=== PATIENT | female | born 1985 | race Hispanic/Latino ===

== ENCOUNTER 2024-03-30 15:31 | Emergency (ER) | payer SELFPAY ==
[2024-03-30 15:46] VITALS: BP 154/96
[2024-03-30 15:52] LABS: Glucose - Point of Care 115 mg/dl (70-99)
[2024-03-30 16:48] VITALS: BP 139/89
[2024-03-30 17:29] LABS: % Basophils 0.4 % (0-2); % Immature Granulocytes 0.3 % (0-0.5); % Lymphocytes 26.9 % (20.5-51.1); % Monocytes 6.8 % (1.7-9.3); % Neutrophils 64.6 % (42.2-75.2); Absolute Eosinophils 0.1 10^3/uL (0-0.7); Absolute Lymphocytes 2.6 10^3/uL (1.2-3.4); Absolute Monocytes 0.7 10^3/uL (0.1-0.6); Absolute Neutrophils 6.3 10^3/uL (1.4-6.5); Hematocrit 37.5 % (37.0-47.0); Hemoglobin 11.9 g/dL (12.0-16.0); Mean Corp Hgb Conc. 31.7 g/dL (33.0-37.0); Mean Corpuscular Hgb 23.1 pg (27.0-31.0); Mean Corpuscular Volume 72.8 fL (81.0-99.0); Mean Platelet Volume 11.1 fL (7.4-10.4); Nucleated Red Blood Cells % 0 %; Platelet Count 329 10^3/uL (130-400); Red Blood Cell Count 5.15 10^6/uL (4.20-5.40); Red Cell Dist. Width 15.6 % (11.5-14.5); White Blood Cell Count 9.7 10^3/uL (4.8-10.8)
--- NOTE | 2024-03-30 17:32 | ED.GENMED ---
History of Present Illness
General
Chief Complaint: Dizziness
Time Seen by Provider: 03/30/24 16:29
History of Present Illness
History of Present Illness:
39-year-old female with history of [id number] diabetes not currently on any medications presents to the emergency department for evaluation of dizziness and headache. She has had the symptoms for the past 3 days. She has not been on
metformin in quite some time. She is not able to eat for the past 2 to 3 days due to the headache. No vomiting. Does also note prior history of anemia and has had heavy periods over the past 4 months but they remain monthly and no bleeding in
between periods.
Past History
Past History
ED Past Medical History: Other (Kidney stones)
ED Past Surgical History:
Social History
Tobacco: Non-smoker
Alcohol: None
Drug: None
Personal:
Living: with family
Review of Systems
Review of Systems
Allergies reviewed?: Yes
All Other Systems: ROS reviewed and negative except as documented in HPI and ROS
Phy Exam
Physical Exam
Physical Exam:
GEN: Well appearing, NAD, WDWN
HEENT: Oral mucosa moist, no scleral icterus
Cardiac: Regular rate and rhythm, no murmurs
Lung: No respiratory distress, no tachypnea, lungs clear to auscultation bilaterally
MSK: No gross deformity or injuries
Skin: Good color, no pallor or jaundice, no rashes
Neuro: AO x3, moves all extremities freely, cranial nerves II through XII grossly intact
Psych: Calm, cooperative
Course
Orders/Labs/Results
Orders:
Orders
03/30/24 15:33
EKG [Electrocardiogram (*1)] Urgent
Reason for Study: Vertigo / Dizzy
EKG- Treatment ONCE
03/30/24 16:57
Ketorolac [Toradol] 15 mg IV NOW STA
03/30/24 16:58
Test Result ONCE
03/30/24 17:23
Complete Blood Count/With Diff Urgent
03/30/24 17:44
Comprehensive Metabolic Panel Urgent
HCG, Serum Qualitative Screen Urgent
03/30/24 18:32
Urinalysis Reflex To Culture Urgent
Date Specimen was Collected: 03/30/24
Time Specimen was Collected: 18:31
Urine Microscopic Reflex Cult Urgent
Urine Culture Urgent
CARLOS Source: U
Specimen Description:
Date Specimen was Collected: 03/30/24
Time Specimen was Collected: 18:31
03/30/24 18:37
CT Head W/o Iv Contrast Urgent
Comment:
Reason For Exam: headaches, dizziness
Abnormal Lab Results
03/30/24 03/30/24 03/30/24
15:51 17:23 17:44
Hgb 11.9 L g/dL
(12.0-16.0)
MCV 72.8 L fL
(81.0-99.0)
MCH 23.1 L pg
(27.0-31.0)
MCHC 31.7 L g/dL
(33.0-37.0)
RDW 15.6 H %
(11.5-14.5)
MPV 11.1 H fL
(7.4-10.4)
Absolute Monos (auto) 0.7 H 10^3/uL
(0.1-0.6)
Creatinine 0.5 L mg/dL
(0.6-1.0)
Glucose 111 H mg/dl
(70-99)
AST 46 H U/L
(14-36)
Urine Nitrite (Reflex)
Leukocyte Esterase Rfl
Urine Bacteria (Reflex)
POC Glucose 115 H mg/dl
(70-99)
03/30/24
18:32
Hgb
MCV
MCH
MCHC
RDW
MPV
Absolute Monos (auto)
Creatinine
Glucose
AST
Urine Nitrite (Reflex) Positive A
(Negative)
Leukocyte Esterase Rfl Trace A
(Negative)
Urine Bacteria (Reflex) Many A
(Negative)
POC Glucose
03/30/24 17:23
03/30/24 17:44
Vital Signs
Initial and Last Documented VS:
Initial Vital Signs
Temp Pulse Resp BP Pulse Ox
98.2 F 76 18 154/96 99
03/30/24 15:46 03/30/24 15:46 03/30/24 15:46 03/30/24 15:46 03/30/24 15:46
Last Documented Vital Signs
Temp Pulse Resp BP Pulse Ox
98.2 F 79 23 134/75 98
03/30/24 15:46 03/30/24 21:00 03/30/24 21:00 03/30/24 21:00 03/30/24 20:45
MDM/Problems Addressed
MDM/Problems Addressed:
39 yo female presents with h/a and dizziness. Workup unremarkable, UA pending for UTI. Signed out to Edita Cohen PROFESSOR OF FORESTRY pending CT imaging and UA
*Critical Care Note
Total Time (30-74mins, 75-104mins- exclusive of procedures): Not Applicable
ED Attending Note
-
Portions of this chart may have been created with voice recognition software.� Occasional wrong word or��sound alike� substitutions may have occurred due to the inherent limitations of voice recognition software.
Discharge Plan
Departure
Patient Disposition: Home (Routine Discharge)
Patient with high blood pressure during this ER visit?: No
Discharge Problem:
Dizziness, Diabetes mellitus type II, non insulin dependent
Instructions: Dizziness, BLOOD PRESSURE
Prescriptions:
No Action
acetaminophen [Tylenol Extra Strength] 500 MG tablet
500 mg PO TIDPRN PRN (Reason: pain)
ibuprofen 600 MG tablet
600 mg PO Q6HPRN PRN (Reason: mild pain when abrahan PO well) 0RF
Referrals:
UNKNOWN - PT DOES,NOT KNOW [Family Provider] -
Activity Restrictions/Additional Instructions:
Debe consultar a un m�dico de atenci�n primaria para hablar sobre los medicamentos para ortega diabetes. Si ya no es elegible para la cl�cathie gratuita, puede realizar un seguimiento con la Cl�cathie de [facility]id[facility] en [facility]ina Familiar. Si ortega mareo empeora,
considere regresar a la carine de emergencias.
[facility]
[address]
[place] [address]
[phone]
Interventions
Interventions:
*Risk Screen - Suicide Last Done: 03/30/24 15:46
*General Assessment Last Done: 03/30/24 15:46
*Neglect/Abuse Screening Last Done: 03/30/24 15:46
ED- Fall Risk Assessment Last Done: 03/30/24 16:40
*ED COVID-19 Vaccine History Last Done: 03/30/24 16:40
*Nursing Disposition Last Done: 03/30/24 21:07
ED- Neurological Assessment Last Done: 03/30/24 16:40
ED- Cardiac Assessment Last Done: 03/30/24 16:40
ED Swallowing Screen Last Done: 03/30/24 16:40
Discharge Date and Time
Discharge Date/Time: 03/30/24 21:08
Print Language: WOLOF
[2024-03-30] MEDS: TORADOL 15 MG IV (17:34)
[2024-03-30 18:07] LABS: HCG, Serum Qualitative Screen Negative
[2024-03-30 18:12] LABS: ALT (SGPT) 28 U/L (0-35); AST (SGOT) 46 U/L (14-36); Alkaline Phosphatase 114 U/L (38-126); Blood Urea Nitrogen 9 mg/dl (7-17); Calcium 8.8 mg/dl (8.4-10.2); Carbon Dioxide 24 mmol/L (22-30); Chloride 101 mmol/L (98-107); Glucose 111 mg/dl (70-99); Potassium 4.6 mmol/L (3.5-5.1); Sodium 139 mmol/L (135-145); Total Bilirubin 0.6 mg/dl (0.2-1.3); Total Protein 7.4 g/dl (6.3-8.2); eGFR > 60.00
[2024-03-30 18:41] LABS: Urine Albumin Negative (Neg - Trace); Urine Bilirubin Negative (Negative); Urine Character Clear (Clear); Urine Color Yellow; Urine Glucose Negative (Negative); Urine Ketone Negative (Negative); Urine Leukocyte Trace (Negative); Urine Nitrite Positive (Negative); Urine Occult Blood Negative (Negative); Urine Specific Gravity 1.015 (<1.030); Urine Urobilinogen Negative (Neg - 1+)
[2024-03-30 18:50] LABS: Urine Bacteria Many (Negative); Urine Red Blood Cell 0-2 /HPF (0-2); Urine Squamous Cell 16-20 /LPF (Few)
[2024-03-30 19:20] VITALS: BP 126/85
[2024-03-30 20:00] VITALS: BP 129/83
[2024-03-30 21:00] VITALS: BP 134/75
== END 2024-03-30 21:08 | disposition home or self-care (01) ==
LOC: EMR 15:31
PROVIDERS: Physician Assistant; EMERGENCY PHYSICIAN Emergency Medicine
DX: R42 Dizziness and giddiness (principal); E11.9 Type 2 diabetes mellitus without complications; R51.9 Headache, unspecified; Z87.442 Personal history of urinary calculi
CPT/HCPCS: 99284; 70450; 80053; 81003; 81015; 82962; 84703; 85025; 87077; 87086; 93005

== ENCOUNTER → 2024-06-27 12:33 | Outpatient (REF) | payer OTHER, SELFPAY ==
[2024-06-27 15:00] LABS: Glycohemoglobin (HgbA1c) 8.3 % (4.0-5.6)
== END ==
LOC: CLINIC 12:33
PROVIDERS: ATTENDING PHYSICIAN Nurse Practitioner Adult Health
DX: E11.9 Type 2 diabetes mellitus without complications (principal)
CPT/HCPCS: 36415; 83036

== ENCOUNTER 2024-08-10 20:20 | Emergency (ER) | payer SELFPAY ==
[2024-08-10 20:25] VITALS: BP 134/94
[2024-08-10] MEDS: PERCOCET 5/325 1 TABLET PO (21:23)
[2024-08-10 21:38] LABS: % Basophils 0.4 % (0-2); % Immature Granulocytes 0.2 % (0-0.5); % Lymphocytes 28.6 % (20.5-51.1); % Monocytes 8.3 % (1.7-9.3); % Neutrophils 60.5 % (42.2-75.2); Absolute Eosinophils 0.2 10^3/uL (0-0.7); Absolute Lymphocytes 2.6 10^3/uL (1.2-3.4); Absolute Monocytes 0.8 10^3/uL (0.1-0.6); Absolute Neutrophils 5.6 10^3/uL (1.4-6.5); Hematocrit 36.2 % (37.0-47.0); Hemoglobin 11.2 g/dL (12.0-16.0); Mean Corp Hgb Conc. 30.9 g/dL (33.0-37.0); Mean Corpuscular Hgb 22.9 pg (27.0-31.0); Mean Corpuscular Volume 73.9 fL (81.0-99.0); Mean Platelet Volume 10.7 fL (7.4-10.4); Nucleated Red Blood Cells % 0 %; Platelet Count 336 10^3/uL (130-400); Red Cell Dist. Width 15.6 % (11.5-14.5); White Blood Cell Count 9.2 10^3/uL (4.8-10.8)
[2024-08-10 21:48] LABS: ALT (SGPT) 48 U/L (0-35); AST (SGOT) 54 U/L (14-36); Albumin 3.7 g/dl (3.5-5.0); Alkaline Phosphatase 167 U/L (38-126); Blood Urea Nitrogen 11 mg/dl (7-17); Calcium 9.3 mg/dl (8.4-10.2); Carbon Dioxide 29 mmol/L (22-30); Chloride 99 mmol/L (98-107); Glucose 176 mg/dl (70-99); Potassium 4.3 mmol/L (3.5-5.1); Sodium 134 mmol/L (135-145); Total Bilirubin 0.4 mg/dl (0.2-1.3); Uric Acid 5.7 mg/dl (2.5-6.2); eGFR > 60.00
--- NOTE | 2024-08-10 22:03 | ED.MUSCINJ ---
HPI-Injury
General
Chief Complaint: Musculo-Skeletal Complaint
Source: patient
Exam Limitations: none
Time Seen by Provider: 08/10/24 21:06
Nursing documentation reviewed up to this point in time: agreed with
History of Present Illness-Injury
Initial Injury comments:
39 yo female with hx anemia, NIDDM that was on Metformin but DC'd due to normal blood sugars per pt and family. She is here for swelling, redness and pain left MTP joint and locally surrounding area. Denies fever/chills. Unable to weight bear due to
pain. No relief with Ibuprofen
Past History
Past History
ED Past Medical History: Other (Kidney stones)
ED Past Surgical History:
Social History
Tobacco: Non-smoker
Alcohol: None
Drug: None
Personal:
Living: with family
Review of Systems
Review of Systems
Allergies reviewed?: Yes
Other source history: family
All Other Systems: ROS reviewed and negative except as documented in HPI and ROS
Constitutional: Denies fever or chills
Respiratory: Denies trouble breathing
Cardiac: Denies chest pain
ABD/GI: Denies abdominal pain or nausea
Musculoskeletal: Reports other (Pain base left big toe)
Skin: Reports other (Redness and warmth base left big toe)
Phy Exam
Physical Exam
Physical Exam:
GENERAL: No acute distress. A&Ox3.
CONSTITUTIONAL: Afebrile.
EYES: clear, conjunctivae normal
ENMT: moist mucus membranes
RESPIRATORY: Regular respirations, nonlabored, lungs clear.
CARDIOVASCULAR: Regular rate and rhythm, no murmurs, no rubs.
GI: Soft, nontender, normal BS
MUSCULOSKELETAL: Tender, red, warm left MTP joint, limited range of motion due to pain. Moves with ease. Well perfused.
SKIN: Warm, dry, pink
PSYCH: Normal mood and affect. Well kept, interactive and appropriate
NEUROLOGIC: Awake, alert and oriented. No focal neurological deficits
Injury Course
Orders/Labs/Results
Orders:
Orders
08/10/24 20:28
CR Foot - Left Min 3 Views Urgent
Comment:
Reason For Exam: pain
08/10/24 21:13
Oxycodone/Acetaminophen [Percocet 5/325] 1 tablet PO NOW STA
08/10/24 21:27
Comprehensive Metabolic Panel Urgent
Uric Acid Urgent
08/10/24 21:28
Complete Blood Count/With Diff Urgent
08/10/24 22:06
Dexamethasone [Decadron] 10 mg PO NOW STA
Abnormal Lab Results
08/10/24 08/10/24
21:27 21:28
Hgb 11.2 L g/dL
(12.0-16.0)
Hct 36.2 L %
(37.0-47.0)
MCV 73.9 L fL
(81.0-99.0)
MCH 22.9 L pg
(27.0-31.0)
MCHC 30.9 L g/dL
(33.0-37.0)
RDW 15.6 H %
(11.5-14.5)
MPV 10.7 H fL
(7.4-10.4)
Absolute Monos (auto) 0.8 H 10^3/uL
(0.1-0.6)
Sodium 134 L mmol/L
(135-145)
Glucose 176 H mg/dl
(70-99)
AST 54 H U/L
(14-36)
ALT 48 H U/L
(0-35)
Alkaline Phosphatase 167 H U/L
(38-126)
08/10/24 21:28
08/10/24 21:27
MDM/Problems Addressed
Differential Diagnosis Includes:
arthritis, fracture, gout
MDM/Problems Addressed:
39 yo female with hx anemia, NIDDM that was on Metformin but DC'd due to normal blood sugars per pt and family. She is here for swelling, redness and pain left MTP joint and locally surrounding area. Denies fever/chills. Unable to weight bear due to
pain. No relief with Ibuprofen
CBC no clinically significant abnormality. Consistent with her chronic anemia
CMP: No clinically significant abnormality, consistent with her chronic mildly elevated liver enzymes
Uric acid WNL
Foot xray neg
Rx for Prednisone taper sent to her pharmacy
Rx for short regimen Tramadol sent to her pharmacy
Referred back to [facility], she has a prescheduled appt. in August
*Critical Care Note
Total Time (30-74mins, 75-104mins- exclusive of procedures): Not Applicable
ED Attending Note
-
Portions of this chart may have been created with voice recognition software.� Occasional wrong word or��sound alike� substitutions may have occurred due to the inherent limitations of voice recognition software.
Discharge Plan
Departure
Patient Disposition: Home (Routine Discharge)
Date of Disposition: 08/10/24
Time of Disposition: 22:12
Patient with high blood pressure during this ER visit?: No
Condition: Good
Discharge Problem:
Arthritis of first MTP joint
Instructions: Osteoarthritis, Gout ED
Prescriptions:
New
tramadol 50 mg tablet
50 mg PO BID PRN (Reason: Pain) Qty: 6 0RF
prednisone 10 mg Tablet
See Rx Instructions .ROUTE .COMPLEX Qty: 30 0RF
Rx Instructions:
Take By Mouth:
40 mg daily x3 days, 30 mg daily x3 days,
20 mg daily x3 days, 10 mg daily x3 days.
No Action
acetaminophen [Tylenol Extra Strength] 500 MG tablet
500 mg PO TIDPRN PRN (Reason: pain)
ibuprofen 600 MG tablet
600 mg PO Q6HPRN PRN (Reason: mild pain when abrahan PO well) 0RF
nitrofurantoin macrocrystal 100 mg capsule
100 mg PO BID 5 Days Qty: 10 0RF
Referrals:
[facility] [Other] - Call in 1-3 days for appt
NONE,* [Family Provider] -
Activity Restrictions/Additional Instructions:
As we discussed, if your foot feels better on the medications within the next 3 days, simply keep your appointment in August at the end [facility].
If your foot is not improving by 3 days, call the end [facility] and move your appointment up
Tylenol or ibuprofen for mild to moderate pain
I sent a prescription to your pharmacy for tramadol which is a narcotic pain medication to use if needed for significant pain
I also sent a prescription to your pharmacy for a prednisone taper. Pick it up and start it tomorrow as you were given a dose of steroid here tonight
You have arthritis in the toe, gout is a type of arthritis. You may have osteoarthritis or you may have gouty arthritis.
Interventions
Interventions:
*Risk Screen - Suicide Last Done: 08/10/24 20:25
*General Assessment Last Done: 08/10/24 20:25
*Neglect/Abuse Screening Last Done: 08/10/24 20:25
*ED- Fall Risk Assessment Last Done: 08/10/24 20:50
ED-Musculoskeletal Assessment Last Done: 08/10/24 21:30
Discharge Date and Time
Print Language: ROMANIAN
[2024-08-10] MEDS: DECADRON 10 MG PO (22:19)
== END 2024-08-10 22:30 | disposition home or self-care (01) ==
LOC: EMR 20:20
PROVIDERS: Registered Nurse; EMERGENCY PHYSICIAN Emergency Medicine
DX: M13.872 Other specified arthritis, left ankle and foot (principal); D64.9 Anemia, unspecified; E11.9 Type 2 diabetes mellitus without complications; Z79.84 Long term (current) use of oral hypoglycemic drugs; Z87.442 Personal history of urinary calculi
CPT/HCPCS: 99283; 73630; 80053; 84550; 85025